=== PATIENT | male | born 1960 | race Caucasian/White ===

== ENCOUNTER 2018-03-22 01:48 | Emergency (ER) | payer OTHER ==
[~2018-03-22 01:48] MED LIST: ASPI81TA82 PO; FISHCAP; LISI-360 PO; LORTA5 PO; PERC10TA27 PO
== END 2018-03-22 02:17 | disposition left against medical advice (07) ==
LOC: PHED 01:48
DX: R03.0 Elevated blood-pressure reading, without diagnosis of hypertension (principal); Z53.21 Procedure and treatment not carried out due to patient leaving prior to being seen by health care provider
CPT/HCPCS: 99281